=== PATIENT | male | born 1970 | race Two or more races ===

== ENCOUNTER 2025-02-01 10:29 | Emergency (ER) | payer BC ==
[2025-02-01 10:41] VITALS: BP 144/78; PULSE 79; RESP 20; TEMP 98.2; BMI 31.7
[2025-02-01] MEDS ORDERED: LIDOCAINE 4% PATCH TP ONE (11:02)
[2025-02-01] MEDS ORDERED: METHOCARBAMOL 500 MG TABLET ONE (11:02)
[2025-02-01] MEDS ORDERED: KETOROLAC TROMETHAMINE 30 MG/1 ML VIAL ONE (11:02)
[2025-02-01] MEDS: LIDOCAINE 4% PATCH TP ONE (11:10)
[2025-02-01] MEDS: KETOROLAC TROMETHAMINE 30 MG/1 ML VIAL IM ONE (11:10)
[2025-02-01] MEDS: METHOCARBAMOL 500 MG TABLET PO ONE (11:10)
== END 2025-02-01 12:21 | disposition home or self-care (01) ==
LOC: JERFT 10:29
PROC: 3E0233Z Introduction of Anti-inflammatory into Muscle, Percutaneous Approach (ICD-10-PCS; principal; 2025-02-01)
DX: M54.50 Low back pain, unspecified (principal)
CPT/HCPCS: 99284-25